=== PATIENT | female | born 1965 | race Caucasian/White ===

== ENCOUNTER → 2019-11-30 | Outpatient (CLI) | payer BC ==
--- NOTE | 2019-11-30 11:41 | REP ---
Left ankle series: Four views. History: Injury. Findings: There is soft-tissue swelling about the lateral malleolus. Ankle mortise is intact. No fracture or subluxation is seen. Impression: No fracture noted. Electronically Signed by Nico Mosley MD 11/30/2019 11:33 A
== END ==
LOC: M LRY 11:10
PROVIDERS: ATTEND Physician Assistant
DX: S99.912A Unspecified injury of left ankle, initial encounter (principal); X50.1XXA Overexertion from prolonged static or awkward postures, initial encounter; Y92.89 Other specified places as the place of occurrence of the external cause